=== PATIENT | female | born 1990 ===

== ENCOUNTER 2018-07-12 07:20 | Outpatient (CLI) | payer OTHER | END 2018-07-12 07:21 | disposition home or self-care (01) | LOC: C.CARD 07:20 | DX: R00.2 Palpitations (principal) ==

== ENCOUNTER 2018-07-13 08:04 | Outpatient (CLI) | payer OTHER | END 2018-07-13 08:05 | disposition home or self-care (01) | LOC: C.CARD 08:04 | DX: R07.2 Precordial pain (principal); R00.2 Palpitations ==